=== PATIENT | male | born 1975 | race Caucasian/White ===

== ENCOUNTER 2021-08-12 08:24 | Emergency (ER) | payer OTHER ==
[2021-08-12 08:40] VITALS: BP 140/80; PULSE 87; TEMP 97; BMI 28.5
[2021-08-12] MEDS ORDERED: DEXAMETHASONE SOD PHOSPHATE 10 MG/1 ML VIAL IVPUSH ONE (08:59)
[2021-08-12] MEDS ORDERED: DEXAMETHASONE SOD PHOSPHATE 10 MG/1 ML VIAL ONE (09:12)
[2021-08-12 09:20] LABS: BASO % 0.4 % (0-2.0); EOS % 4.3 % (0-4.5); HEMATOCRIT 43.5 % (35.4-49); HEMOGLOBIN 15.3 GM/dL (11.7-16.9); LYMPH % 21.9 % (8-40); MCHC 35.1 g/dl (32.0-35.9); MEAN CELL VOLUME 93.9 fl (80-96); MEAN PLT VOLUME 6.9 fl (7.5-11.1); MONO % 7.6 % (3.8-10.2); NEUT % 65.8 % (42.8-82.8); PLATELET COUNT 277 10^3/uL (134-434); RBC 4.63 M/mm3 (4.00-5.60); RDW 12.7 % (11.9-15.9); WHITE BLOOD COUNT 9.8 K/mm3 (4.0-10.0)
[2021-08-12 09:46] LABS: CALCIUM 8.7 mg/dL (8.5-10.1)
[2021-08-12 09:47] LABS: ALBUMIN 3.5 g/dl (3.4-5.0); BLOOD UREA NITROGEN 7.8 mg/dL (7-18)
[2021-08-12 09:50] LABS: CREATININE 0.9 mg/dL (0.55-1.3)
[2021-08-12 09:51] LABS: BILIRUBIN,TOTAL 0.5 mg/dL (0.2-1); TOT PROT 7.5 g/dl (6.4-8.2)
== END 2021-08-12 10:19 | disposition home or self-care (01) ==
LOC: JER 08:24
PROC: 3E033GC Introduction of Other Therapeutic Substance into Peripheral Vein, Percutaneous Approach (ICD-10-PCS; principal; 2021-08-12)
DX: T78.40XA Allergy, unspecified, initial encounter (principal); L03.115 Cellulitis of right lower limb
CPT/HCPCS: 36415; 80053; 85025; 86618; 96374; 96375; 99284-25; J1100